=== PATIENT | female | born 1975 | race American Indian/Alaskan Native ===

== ENCOUNTER 2017-03-28 17:03 | Observation (INO) | payer OTHER ==
[2017-03-28 17:09] VITALS: BMI 47.5
--- NOTE | 2017-03-28 17:17 | ED PDOC ---
Arrival/HPI - General Chief Complaint: Chest Pain Time Seen by Provider: 03/28/17 17:04 Historian: Patient - History of Present Illness Narrative History of Present Illness (Text): 03/28/17 17:17 A 41 year old female, who denies any past medical history, presents to the emergency department complaining of midsternal chest pain since last night. Patient reports her pain began as a pressure sensation that developed into a sharp pain this morning associated with sob. She reports radiating pain to her back and a mild headache. She took Aspirin and Motrin, with mild relief. Patient denies any exacerbating factors but reports she has been under stress lately. Patient denies any trauma, injury, fever, chills, nausea, vomiting, abdominal pain, cough, sore throat, runny nose, lower extremity pain/swelling, dizziness, visual changes or any other complaints. Last menstrual period was 9 days ago on 03/19/17. Patient denies any recent travel or control use. PMD: [facility] Time/Duration: Other (last night) Symptom Course: Worsening Quality: Other Context: Home Past Medical History - Provider Review Nursing Documentation Reviewed: Yes - Past History Past History: No Previous - Infectious Disease Hx of Infectious Diseases: None - Psychiatric Hx Substance Use: No - Surgical History Hx Section: Yes Hx Cholecystectomy: (x1) - Anesthesia Hx Anesthesia: Yes Hx Anesthesia Reactions: No Family/Social History - Physician Review Nursing Documentation Reviewed: Yes Family/Social History: Hypertension Smoking Status: Never Smoked Hx Alcohol Use: No Hx Substance Use: No Allergies/Home Meds Allergies/Adverse Reactions: Allergies No Known Allergies Allergy (Verified 03/28/17 17:09) Home Medications: Home Meds Medication Instructions Recorded Confirmed No Known Home Med 03/28/17 03/28/17 Review of Systems - Physician Review All systems were reviewed & negative as marked: Yes - Review of Systems Constitutional: absent: Fevers, Night Sweats Eyes: absent: Vision Changes ENT: absent: Sore Throat, Rhinorrhea Respiratory: absent: SOB, Cough Cardiovascular: Chest Pain Gastrointestinal: absent: Abdominal Pain, Nausea, Vomiting Musculoskeletal: Back Pain. absent: Other (lower extremity pain/swelling) Neurological: Headache. absent: Dizziness Physical Exam Vital Signs Reviewed: Yes Vital Signs Temp Pulse Resp BP Pulse Ox 03/28/17 17:26 98.2 F 65 18 149/83 100 Temperature: Afebrile Blood Pressure: Normal Pulse: Regular Respiratory Rate: Normal Appearance: Positive for: Well-Appearing, Non-Toxic, Comfortable Pain Distress: None Mental Status: Positive for: Alert and Oriented X 3 - Systems Exam Head: Present: Atraumatic, Normocephalic Pupils: Present: PERRL Conjunctiva: Present: Normal Mouth: Present: Moist Mucous Membranes Pharnyx: Present: Normal. No: ERYTHEMA, EXUDATE Neck: Present: Normal Range of Motion Respiratory/Chest: Present: Clear to Auscultation, Good Air Exchange. No: Respiratory Distress, Accessory Muscle Use, Tender to Palpation Cardiovascular: Present: Regular Rate and Rhythm, Normal S1, S2. No: Murmurs Abdomen: Present: Normal Bowel Sounds. No: Tenderness, Distention, Peritoneal Signs Back: Present: Normal Inspection Upper Extremity: Present: Normal Inspection. No: Cyanosis, Edema Lower Extremity: Present: Normal Inspection. No: Edema Neurological: Present: GCS=15, CN II-XII Intact, Speech Normal Skin: Present: Warm, Dry, Normal Color. No: Rashes Psychiatric: Present: Alert, Oriented x 3, Normal Insight, Normal Concentration Medical Decision Making ED Course and Treatment: 03/28/17 17:17 Impression: A 41 year old female with midsternal chest pain radiating to back with sob. Patient notes mild headache and stress. Differential: anxiety vs. PE vs. disseection vs. GERD vs. ACS Plan: -- Chest CT -- Labs -- Urinalysis -- Pepcid and IV fluids -- Reassess and disposition Progress Notes: EKG shows NSR at [address]-segment elevations, normal intervals, normal axis. Interpreted by me. Report Date : 03/28/2017 20:58:00 Dictated By: Tomas Orourke MD, MD EXAM: CT Angiography Chest With Intravenous Contrast IMPRESSION: 1. A few nonocclusive filling defects are identified within the segmental branches to the right upper lobe, suspicious for pulmonary embolism. This is visualized on series 3 image 75. Evaluation of the peripheral pulmonary arteries is limited by suboptimal enhancement. There is no acute central pulmonary embolism. 2. There is no aneurysm or dissection of the aorta. 3. A few small lung nodules are visualized. If this patient is at low risk for a primary malignancy, then no follow-up is required. If this patient is at high risk for a primary maligancy, then a follow-up noncontrast chest CT is recommended at 12 months. If unchanged at that time, then no follow-up is required. Fleischner Society Recommendations. Incidental Pulmonary Nodule Follow -up. Radiology, 2005 Nov;237(2):395-400. EXAM: CT Angiography Abdomen and Pelvis With Intravenous Contrast IMPRESSION: 1. There is no aneurysm or dissection of the aorta. 2. There is a 3-4 mm nonobstructing right renal calculus. There is no hydronephrosis bilaterally. 3. There is mild nodular thickening of the left adrenal gland, indeterminate in etiology. 4. The bladder is mildly distended. 5. Diverticulosis. 6. The appendix is mildly distended measuring 7-8 mm. There is no acute periappendiceal stranding. Clinical correlation is recommended. 03/28/17 21:39 Patient with noted history; CT shows findings suspicious for PE - will place on tele and start lovenox. Case discussed with Dr. Spicer. - Lab Interpretations Lab Results: 03/28/17 17:20 03/28/17 17:20 Lab Results 03/28/17 17:35: Urine Color Yellow, Urine Appearance Clear, Urine pH 6.0, Ur Specific [place] 1.015, Urine Protein Negative, Urine Glucose (UA) Negative, Urine Ketones Negative, Urine Blood Negative, Urine Nitrate Negative, Urine Bilirubin Negative, Urine Urobilinogen 0.2, Ur Leukocyte Esterase Negative 03/28/17 17:20: PT 10.7, INR 0.99, APTT 28.9 03/28/17 17:20: Sodium 140, Potassium 3.7, Chloride 104, Carbon Dioxide 26, Anion Gap 14, BUN 9, Creatinine 0.8, Est GFR ( Amer) > 60, Est GFR (Non- Af Amer) > 60, Random Glucose 112 H, Calcium 9.2, Magnesium 1.7, Total Bilirubin 0.3, AST 21, ALT 32, Alkaline Phosphatase 48, Lactate Dehydrogenase 370, Total Creatine Kinase 170, Troponin I < 0.01, NT-Pro-B Natriuret Pep 190, Total Protein 7.0, Albumin 4.0, Globulin 3.1, Albumin/Globulin Ratio 1.3, Lipase 30 03/28/17 17:20: WBC 4.7, RBC 4.04, Hgb 11.9 L, Hct 35.7 L, MCV 88.4, MCH 29.5, MCHC 33.3, RDW 13.2, Plt Count 166, MPV 12.3 H, Gran % 39.3 L, Lymph % (Auto) 50.0 H, [place] % (Auto) 7.9 H, Eos % (Auto) 2.4, Baso % (Auto) 0.4, Gran # 1.83, Lymph # 2.3, [place] # 0.4, Eos # 0.1, Baso # 0.02 I have reviewed the lab results: Yes - RAD Interpretation Radiology Orders: 03/28/17 17:22 ANGIOGRAPHY DISECTION PROTOCOL [CT] Stat - Medication Orders Current Medication Orders: Discontinued Medications Alprazolam (Xanax) 0.125 mg PO STAT STA PRN Reason: Protocol Stop: 03/28/17 18:53 Last Admin: 03/28/17 19:21 Dose: 0.125 mg Enoxaparin Sodium (Lovenox) 120 mg SC ONCE STA PRN Reason: Protocol Stop: 03/28/17 21:14 Famotidine (Pepcid) 20 mg IVP STAT STA Stop: 03/28/17 17:25 Last Admin: 03/28/17 17:56 Dose: 20 mg Sodium Chloride (Sodium Chloride 0.9%) 1,000 mls @ 999 mls/hr IV .Q1H1M STA Stop: 03/28/17 18:24 Last Admin: 03/28/17 17:56 Dose: 999 mls/hr Iohexol (Omnipaque 350 150 Ml) Confirm Administered Dose 150 ml .ROUTE .K-MED ONE Stop: 03/28/17 18:23 - Scribe Statement The provider has reviewed the documentation as recorded by the Corine Monterroso Provider Scribe Attestation: All medical record entries made by the Scribyanni were at my direction and personally dictated by me. I have reviewed the chart and agree that the record accurately reflects my personal performance of the history, physical exam, medical decision making, and the department course for this patient. I have also personally directed, reviewed, and agree with the discharge instructions and disposition. Disposition/Present on Arrival - Present on Arrival Any Indicators Present on Arrival: No History of DVT/PE: No History of Uncontrolled Diabetes: No Urinary Catheter: No History of Decub. Ulcer: No History Surgical Site Infection Following: None - Disposition Have Diagnosis and Disposition been Completed?: Yes Diagnosis: Pulmonary embolism Disposition: HOSPITALIZED Disposition Time: 21:15 Patient Plan: Observation, Telemetry Condition: FAIR Referrals: Ivelisse Bush, [Primary Care Provider] - Follow up with primary Forms: [employer] (Icelandic)
[2017-03-28] MEDS ORDERED: Sodium Chloride 0.9% 1,000 ML IV STA (17:24)
[2017-03-28 17:42] LABS: BASO # 0.02 K/mm3 (0.0-2.0); BASO % 0.4 % (0.0-3.0); EOS # 0.1 (0.0-0.7); EOS % 2.4 % (1.5-5.0); GRAN # 1.83 (1.4-6.5); GRAN % 39.3 % (50.0-68.0); HEMATOCRIT 35.7 % (36.0-48.0); LYMPH # 2.3 (1.2-3.4); MEAN CELL VOLUME 88.4 fl (80.0-105.0); MEAN CORPUSCULAR HEMOGLOBIN 29.5 pg (25.0-35.0); MEAN CORPUSCULAR HGB CONC 33.3 g/dl (31.0-37.0); MEAN PLATELET VOLUME 12.3 fl (7.0-11.0); MONO # 0.4 (0.1-0.6); MONO % 7.9 % (1.0-6.0); RED CELL DISTRIBUTION WIDTH 13.2 % (11.5-14.5); WHITE BLOOD COUNT 4.7 10^3/ul (4.5-11.0)
[2017-03-28 17:43] LABS: URINE BILIRUBIN NEGATIVE (NEGATIVE); URINE BLOOD NEGATIVE (NEGATIVE); URINE GLUCOSE (UA) NEGATIVE (NEGATIVE); URINE KETONE NEGATIVE (NEGATIVE); URINE LEUKOCYTE ESTERASE NEGATIVE Leu/uL (NEGATIVE); URINE PROTEIN NEGATIVE mg/dL (<30 mg/dL); URINE UROBILINOGEN 0.2 E.U./dL (<1 E.U./dL)
[2017-03-28 17:45] LABS: URINE APPEARANCE CLEAR (CLEAR); URINE COLOR YELLOW (YELLOW)
[2017-03-28 17:53] LABS: ALB/GLOB RATIO 1.3 (1.1-1.8); ALKALINE PHOSPHATASE 48 U/L (38-126); ALT/SGPT 32 U/L (7-56); AST/SGOT 21 U/L (14-36); BILIRUBIN,TOTAL 0.3 mg/dL (0.2-1.3); BLOOD UREA NITROGEN 9 mg/dL (7-21); CALCIUM 9.2 mg/dL (8.4-10.5); CARBON DIOXIDE 26 mmol/L (21-33); GFR AFRICAN-AMERICAN > 60; GLUCOSE,RANDOM 112 mg/dL (70-110); LIPASE 30 U/L (23-300); MAGNESIUM 1.7 mg/dL (1.7-2.2); POTASSIUM 3.7 mmol/L (3.6-5.0); SODIUM 140 mmol/L (132-148)
[2017-03-28 17:55] LABS: INR 0.99 (0.93-1.08); PARTIAL THROMBOPLASTIN TIME 28.9 Seconds (23.7-30.8)
[2017-03-28 18:02] LABS: CHLORIDE 104 mmol/L (98-107)
[2017-03-28 18:09] LABS: TROPONIN I < 0.01 ng/mL
--- NOTE | 2017-03-28 20:59 | CT ---
EXAM: CT Angiography Chest With Intravenous Contrast CLINICAL HISTORY: The patient age is 41 years old and is female; Pain; Other: Back; Chest pain; Prior surgery; Surgery type: / cholecystectomy; Additional info: Cp radiating to the back - R/O pe/dissection. R/O pe and disection Facility exam id and description: Ct angiodisec angiography disection protocol TECHNIQUE: Axial computed tomographic angiography images of the chest with intravenous contrast using pulmonary embolism protocol. All CT scans at this facility use one or more dose reduction techniques, viz.: automated exposure control; ma/kV adjustment per patient size (including targeted exams where dose is matched to indication; i.e. head); or iterative reconstruction technique. MIP reconstructed images were created and reviewed. Coronal and sagittal reformatted images were created and reviewed. CONTRAST: 147 mL of omni 350 administered intravenously. COMPARISON: No relevant prior studies available. FINDINGS: Pulmonary arteries: A few nonocclusive filling defects are identified within the segmental branches to the right upper lobe, suspicious for pulmonary embolism. This is visualized on series 3 image 75. Evaluation of the peripheral pulmonary arteries is limited by suboptimal enhancement. There is no acute central pulmonary embolism. Aorta: There is no aneurysm or dissection of the aorta. Lungs: Within the right upper lobe of the lung on series 5 image 27, there is a 3 mm nodule. A tiny subpleural nodule is visualized within the right middle lobe. No confluent infiltrate. Pleural space: No significant effusion. No pneumothorax. Heart: No cardiomegaly. No significant pericardial effusion. No evidence of RV dysfunction. Mediastinum: There is a probable small hiatal hernia. Bones/joints: Hypertrophic degenerative changes are noted within the spine. Lymph nodes: Small mediastinal lymph nodes are identified, without significant mediastinal lymphadenopathy. IMPRESSION: 1. A few nonocclusive filling defects are identified within the segmental branches to the right upper lobe, suspicious for pulmonary embolism. This is visualized on series 3 image 75. Evaluation of the peripheral pulmonary arteries is limited by suboptimal enhancement. There is no acute central pulmonary embolism. 2. There is no aneurysm or dissection of the aorta. 3. A few small lung nodules are visualized. If this patient is at low risk for a primary malignancy, then no follow-up is required. If this patient is at high risk for a primary maligancy, then a follow-up noncontrast chest CT is recommended at 12 months. If unchanged at that time, then no follow-up is required. Fleischner Society Recommendations. Incidental Pulmonary Nodule Follow-up. Radiology, 2005 Nov;237(2):395-400. 4. Additional CT findings described above. EXAM: CT Angiography Abdomen and Pelvis With Intravenous Contrast EXAM DATE/TIME: 03/28/2017 5:22 PM CLINICAL HISTORY: The patient age is 41 years old and is female; Pain; Other: Back; Chest pain; Prior surgery; Surgery type: / cholecystectomy; Additional info: Cp radiating to the back - R/O pe/dissection. R/O pe and disection Facility exam id and description: Ct angiodisec angiography disection protocol TECHNIQUE: Axial computed tomographic angiography images of the abdomen and pelvis with intravenous contrast. All CT scans at this facility use one or more dose reduction techniques, viz.: automated exposure control; ma/kV adjustment per patient size (including targeted exams where dose is matched to indication; i.e. head); or iterative reconstruction technique. MIP reconstructed images were created and reviewed. Coronal and sagittal reformatted images were created and reviewed. CONTRAST: 147 mL of omni 350 administered intravenously. COMPARISON: No relevant prior studies available. FINDINGS: Lower thorax: There is a probable small hiatal hernia. VASCULATURE: Aorta: There is no aneurysm or dissection of the aorta. Celiac trunk and mesenteric arteries: The inferior mesenteric artery is patent. No occlusion or significant stenosis. Renal arteries: No acute findings. No occlusion or significant stenosis. Iliac arteries: No acute findings. No occlusion or significant stenosis. ABDOMEN: Liver: No mass. Gallbladder and bile ducts: No calcified stones. No ductal dilation. Pancreas: No ductal dilation. No mass. Spleen: No splenomegaly. Adrenals: There is mild nodular thickening of the left adrenal gland, indeterminate in etiology. Kidneys and ureters: There is a 3-4 mm nonobstructing right renal calculus. There is no hydronephrosis bilaterally. Stomach and bowel: Colonic diverticula are identified, without acute inflammatory stranding of the adjacent mesentery. No obstruction. Evaluation of bowel is limited by the absence of oral contrast. Appendix: The appendix is mildly distended measuring 7-8 mm. There is no acute periappendiceal stranding. PELVIS: Bladder: The bladder is mildly distended. Reproductive: Unremarkable as visualized. ABDOMEN and PELVIS: Intraperitoneal space: No significant fluid collection. No free air. Bones/joints: Mild degenerative changes are visualized within the lumbar spine. No acute fracture. No dislocation. Soft tissues: There is eventration of the ventral abdominal wall. Lymph nodes: No significant retroperitoneal or intrapelvic lymphadenopathy. IMPRESSION: 1. There is no aneurysm or dissection of the aorta. 2. There is a 3-4 mm nonobstructing right renal calculus. There is no hydronephrosis bilaterally. 3. There is mild nodular thickening of the left adrenal gland, indeterminate in etiology. 4. The bladder is mildly distended. 5. Diverticulosis. 6. The appendix is mildly distended measuring 7-8 mm. There is no acute periappendiceal stranding. Clinical correlation is recommended. 7. Additional CT findings described above.
[2017-03-28] MEDS ORDERED: Enoxaparin 120 mg Syringe SC STA (21:13)
--- NOTE | 2017-03-29 01:34 | CP.PCM.HP ---
<TARYN CARVER - Last Filed: 03/29/17 01:17> History of Present Illness - History of Present Illness History of Present Illness: Taryn Carver DO PGY1 - Internal Medicine H&P CC: Chest pain HPI: 41yo F with no significant PMH presented to ED complaining of CP. Yesterday , she felt some chest pressure, associated with anxiety, which resolved spontaneously. She has had that sensation of chest pressure in the past, always associated with anxiety and always relieved spontaneously. Today, she was sitting at home, and got up to walk to her kitchen, when she started feeling a sharp midchest retrosternal pain that radiated to her back. She has never had that pain before. Pain was 8/10 in severity, associated with mild headache. She took an 81mg aspirin, and has some improvement in her pain about an hour later, to a 5/10 in severity. She came to the ER where she initially received Xanax and pepcid. Currently, her pain is resolved, 0/10 in severity. She denies any SOB, N/V, diaphoresis associated with her CP today. It was not worsened by anything in particular, including exertion. Patient now denies any CP, SOB, palpitation, abdominal pain, F/C, N/V/D/C, VINSON, focal weakness or numbness, dizziness, LE swelling or pain. Of note, patient denies recent travel, recent illness, recent surgery, prolonged immobilization/bed rest. PMH: None PSH: section 13 yrs ago Meds: OTC motrin as needed, has been using 1-2 daily for past couple weeks FHx: DM, HTN, dyslipidemia - in mother and father, TIA - in mother Soc: Tob denies, EtOH denies, Illicits denies All: NKDA ROS: Constitutional: pt denies fever, chills, generalized weakness ENT: pt denies dysphagia, otalgia, hearing deficit, rhinorrhea Eyes: pt denies sudden loss of vision, diplopia, blurred vision MSK: pt denies muscle stiffness, joint pain, extremity cramping Cardio: +CP (resolved) pt denies sob, heart murmur Pulm: pt denies cough, hemoptysis, wheeze GI: pt denies loss of appetite, abdominal pain, constipation, melena, n/v/d : pt denies burning on urination, urinary frequency, hematuria, urinary urgency Neuro: pt denies paresis, paresthesia, dizziness, vinson, numbness, tingling Derm: pt denies skin changes, lesions, nail changes Endo: pt denies intolerance to heat/cold, diaphoresis, night sweats, polydipsia Psych: +Anxiety pt denies depression, mood changes Present on Admission - Present on Admission Any Indicators Present on Admission: No Past Patient History - Infectious Disease Hx of Infectious Diseases: None - Past Social History Smoking Status: Never Smoked - PSYCHIATRIC Hx Substance Use: No - SURGICAL HISTORY Hx Section: Yes Hx Cholecystectomy: (x1) - ANESTHESIA Hx Anesthesia: Yes Hx Anesthesia Reactions: No Meds Allergies/Adverse Reactions: Allergies Allergy/AdvReac Type Severity Reaction Status Date / Time No Known Allergies Allergy Verified 03/28/17 17:09 Physical Exam - Constitutional Appears: Non-toxic, No Acute Distress - Head Exam Head Exam: ATRAUMATIC, NORMOCEPHALIC - Eye Exam Eye Exam: EOMI, Normal appearance, PERRL - ENT Exam ENT Exam: Mucous Membranes Moist - Neck Exam Neck exam: Negative for: Lymphadenopathy, Meningismus - Respiratory Exam Respiratory Exam: Clear to Auscultation Bilateral, NORMAL BREATHING PATTERN. absent: Chest Wall Tenderness, Rales, Rhonchi, Wheezes - Cardiovascular Exam Cardiovascular Exam: RRR, +S1, +S2. absent: Tachycardia - GI/Abdominal Exam GI & Abdominal Exam: Normal Bowel Sounds, Soft. absent: Tenderness - Extremities Exam Extremities exam: Positive for: normal inspection, pedal edema (trace, bilateral ). Negative for: calf tenderness - Back Exam Back exam: absent: CVA tenderness (L), CVA tenderness (R) - Neurological Exam Neurological exam: Alert, CN II-XII Intact, Oriented x3 - Psychiatric Exam Psychiatric exam: Normal Affect, Normal Mood - Skin Skin Exam: Dry, Intact, Normal Color Results - Vital Signs Recent Vital Signs: Last Vital Signs Temp 98.2 F 03/28/17 17:26 Pulse 73 03/28/17 21:19 Resp 16 03/28/17 21:19 BP 151/91 H 03/28/17 21:19 Pulse Ox 100 03/28/17 21:19 - Labs Result Diagrams: 03/28/17 17:20 03/28/17 17:20 Assessment & Plan - Assessment and Plan (Free Text) Assessment: 41 yo F with no significant PMH presents with CP radiating to her back, associated with VINSON and anxiety. CTA with dissection protocol done in ED significant for filling defects - possible PE Plan: 1. Chest pain, resolved - Likely 2/2 anxiety vs PE, r/o dissection, r/o ACS - Pain improved to 0/10 in severity after patient received Xanax and Pepcid in ER - CTA with dissection protocol done in ED showed no dissection, but some subsegmental filling defects in RUL concerning for PE - Radiographic findings inconsistent with patient's history and HPI, and she has no known risk factors for PE (no history of DVT/PE, nonsmoker, no FHx of hypercoagulability, no HRT/OCPs, prolonged immobility), likely false positive - Ordered LE duplex, D-dimer and ABG to r/o DVT/PE - Patient recieved Lovenox in ER, hypercoagulable workup will be altered by that , should have outpatient workup in 2 weeks if she does not require prolonged anticoagulation - Continue Lovenox 110mg SQ BID unless PE is r/o - Trop negative x1, continue to trend - BNP 190 - Hem/Onc consult to r/o hypercoagulability - Continue to monitor SaO2 GI/DVT PPx: Lovenox covers for DVT; protonix for GI Patient seen, discussed, and reviewed with attending <Odilon Spicer - Last Filed: 03/29/17 07:01> Results - Vital Signs Recent Vital Signs: Last Vital Signs Temp 98.9 F 03/29/17 06:00 Pulse 57 L 03/29/17 06:00 Resp 18 03/29/17 06:00 BP 136/85 03/29/17 06:00 Pulse Ox 100 03/29/17 06:00 - Labs Result Diagrams: 03/29/17 06:04 03/28/17 17:20 Labs: Laboratory Results - last 24 hr 03/29/17 03/29/17 06:04 06:04 WBC 4.1 L RBC 4.00 Hgb 11.6 L Hct 35.5 L MCV 88.8 MCH 29.0 MCHC 32.7 RDW 13.5 Plt Count 165 MPV 12.5 H Gran % 40.8 L Lymph % (Auto) 48.5 H [place] % (Auto) 8.0 H Eos % (Auto) 2.2 Baso % (Auto) 0.5 Gran # 1.67 Lymph # 2.0 [place] # 0.3 Eos # 0.1 Baso # 0.02 D-Dimer, Quantitative 0.31 Attending/Attestation - Attestation I have personally seen and examined this patient.: Yes I have fully participated in the care of the patient.: Yes I have reviewed all pertinent clinical information: Yes Notes (Text): 03/29/17 06:58 I agree with the above mentioned note and exam by the resident with the addition of the followin41 y/o female without a significant PMHx presented to the ED with a complaint of chest pain radiating towards the back. ED Physician was concerned for Aortic dissection so a CT Angio was performed which ruled that out however did report of a possible PE. Appears unlikely given lack of symptoms however patient has been treated for an acute PE. Consider re-evaluation on CT Angio vs V/Q scan to confirm.
[2017-03-29] MEDS: Pantoprazole 40 mg EC Tab PO SCH (05:35)
[2017-03-29 06:27] LABS: BASO # 0.02 K/mm3 (0.0-2.0); BASO % 0.5 % (0.0-3.0); EOS # 0.1 (0.0-0.7); EOS % 2.2 % (1.5-5.0); GRAN # 1.67 (1.4-6.5); GRAN % 40.8 % (50.0-68.0); HEMATOCRIT 35.5 % (36.0-48.0); LYMPH % 48.5 % (22.0-35.0); MEAN CELL VOLUME 88.8 fl (80.0-105.0); MEAN CORPUSCULAR HGB CONC 32.7 g/dl (31.0-37.0); MEAN PLATELET VOLUME 12.5 fl (7.0-11.0); MONO # 0.3 (0.1-0.6); RED CELL DISTRIBUTION WIDTH 13.5 % (11.5-14.5); WHITE BLOOD COUNT 4.1 10^3/ul (4.5-11.0)
[2017-03-29 07:07] LABS: ARTERIAL BLOOD GAS HCO3 17.6 mmol/L (21-28); ARTERIAL BLOOD GAS O2 CAPACITY 12.8 mL/dl (16-24); ARTERIAL BLOOD GAS O2 CONTENT 12.7 ML/dl (15-23); ARTERIAL BLOOD GAS PH 7.39 (7.35-7.45); ARTERIAL BLOOD HGB O2 SAT 96.7 % (95.0-98.0); CARBOXYHEMOGLOBIN 1.7 % (0.5-1.5); HHB 0.9 % (0-5); METHEMOGLOBIN 0.7 % (0.0-3.0)
[2017-03-29 07:17] LABS: ALB/GLOB RATIO 1.3 (1.1-1.8); ALKALINE PHOSPHATASE 49 U/L (38-126); ALT/SGPT 30 U/L (7-56); AST/SGOT 26 U/L (14-36); BILIRUBIN,TOTAL 0.5 mg/dL (0.2-1.3); BLOOD UREA NITROGEN 6 mg/dL (7-21); CALCIUM 9.2 mg/dL (8.4-10.5); CARBON DIOXIDE 28 mmol/L (21-33); CHLORIDE 104 mmol/L (98-107); GFR AFRICAN-AMERICAN > 60; GLUCOSE,RANDOM 89 mg/dL (70-110); MAGNESIUM 1.8 mg/dL (1.7-2.2); PHOSPHOROUS 4.2 mg/dL (2.5-4.5); POTASSIUM 3.8 mmol/L (3.6-5.0); SODIUM 141 mmol/L (132-148); TOTAL PROTEIN 7.1 g/dL (5.8-8.3)
--- NOTE | 2017-03-29 09:55 | CP.PCM.CON ---
History of Present Illness - History of Present Illness History of Present Illness: 41F w/o any significant medical history who presented with sudden chest tightness, pain associated with anxiety that lasted for 1 minute. She has this pain in episodes when she in under stress and anxiety. The pain resolved once she sat down and upon arriving to the ER her pain resolved. In the ER she had blood work, EKG and imaging done. Currently she is asymptomatic . Review of Systems - Constitutional Constitutional: absent: As Per HPI, Anorexia, Chills, Daytime Sleepiness, Excessive Sweating, Fatigue, Fever, Frequent Falls, Headache, Increased Appetite , Lethargy, Malaise, Night Sweats, Snoring, Sleep Apnea, Weight Gain, Weight Loss, Weakness, Other - EENT Eyes: absent: As Per HPI, Blind Spots, Blurred Vision, Change in Vision, Decreased Night Vision, Diplopia, Discharge, Dry Eye, Exophthalmos, Floaters, Irritation, Itchy Eyes, Loss of Peripheral Vision, Pain, Photophobia, Requires Corrective Lenses, Sees Flashes, Spots in Vision, Tunnel Vision, Other Visual Disturbances, Loss of Vision, Other Ears: absent: As Per HPI, Decreased Hearing, Ear Discharge, Ear Pain, Tinnitus, Abnormal Hearing, Disequilibrium, Dizziness, Other Nose/Mouth/Throat: absent: As Per HPI, Epistaxis, Nasal Congestion, Nasal Discharge, Nasal Obstruction, Nasal Trauma, Nose Pain, Post Nasal Drip, Sinus Pain, Sinus Pressure, Bleeding Gums, Change in Voice, Dental Pain, Dry Mouth, Dysphagia, Halitosis, Hoarsness, Lip Swelling, Mouth Lesions, Mouth Pain, Odynophagia, Sore Throat, Throat Swelling, Tongue Swelling, Facial Pain, Neck Pain, Neck Mass, Other - Breasts Breasts: absent: As Per HPI, Change in Shape, Mass, Pain, Nipple Discharge, Nipple Inversion, Skin Changes, Swelling, Other - Cardiovascular Cardiovascular: absent: As Per HPI, Acrocyanosis, Chest Pain, Chest Pain at Rest , Chest Pain with Activity, Claudication, Diaphoresis, Dyspnea, Dyspnea on Exertion, Edema, Irregular Heart Rhythm, Pain Radiating to Arm/Neck/Jaw, Leg Edema, Leg Ulcers, Lightheadedness, Orthopnea, Palpitations, Paroxysmal Nocturnal Dyspnea, Pedal Edema, Radiating Pain, Rapid Heart Rate, Slow Heart Rate, Syncope, Other - Respiratory Respiratory: absent: As Per HPI, Cough, Dyspnea, Hemoptysis, Dyspnea on Exertion , Wheezing, Snoring, Stridor, Pain on Inspiration, Chest Congestion, Excessive Mucous Production, Change in Mucous Color, Pain with Coughing, Other - Gastrointestinal Gastrointestinal: absent: As Per HPI, Abdominal Pain, Belching, Bloating, Change in Bowel Habits, Change in Stool Character, Coffee Ground Emesis, Constipation, Cramping, Diarrhea, Dyspepsia, Dysphagia, Early Satiety, Excessive Flatus, Fecal Incontinence, Heartburn, Hematemesis, Hematochezia, Loose Stools, Melena, Nausea, Odynophagia, Temesmus, Vomiting, Other - Genitourinary Genitourinary: absent: As Per HPI, Change in Urinary Stream, Difficulty Urinating, Dysuria, Flank Pain, Hematuria, Pyuria, Nocturia, Urinary Incontinence, Urinary Frequency, Urinary Hesitance, Urinary Urgency, Voiding Freq/Small Amts, Freq UTI, Hx Renal/Bladder Calculi, Hx /Renal Surgery, Bladder Distension, Other - Reproductive: Female Reproductive:Female: absent: As Per HPI, Amenorrhea, Amenorrhea/ Control, Currently Menstual, Cycle <21 Days, Cycle >35 Days, Cycle Variable, Menses 1-7 Days, Menses >/= 8 Days, Menses Variable, Cycle > 4 Weeks Between, No Menses for 6 Months, Heavy Menses, Light Menses, Normal Menses, Spotting Between Cycles , S/P Hysterectomy, Menopausal, Post Menopausal, Premenarche, Abnormal Vaginal Bleeding, Dysmenorrhea, Dyspareunia, Genital Lesions, Genital Pruritis, Pelvic Pain, Prolapse Symptoms, Sexual Dysfunction, Vaginal Discharge, Vaginal Dryness , Vaginal Odor, Vaginal Pruritis, Other - Musculoskeletal Musculoskeletal: absent: As Per HPI, Abnormal Gait, Arthralgias, Atrophy, Back Pain, Deformity, Joint Swelling, Limited Range of Motion, Loss of Height, Muscle Cramps, Muscle Weakness, Myalgias, Neck Pain, Numbness, Radiating Pain into Limb, Stiffness, Tingling, Other Past Patient History - Infectious Disease Hx of Infectious Diseases: None - Past Social History Smoking Status: Never Smoked - MUSCULOSKELETAL/RHEUMATOLOGICAL Hx Falls: No - PSYCHIATRIC Hx Substance Use: No - SURGICAL HISTORY Hx Surgeries: Yes - ANESTHESIA Hx Anesthesia: Yes Hx Anesthesia Reactions: No Meds Allergies/Adverse Reactions: Allergies Allergy/AdvReac Type Severity Reaction Status Date / Time No Known Allergies Allergy Verified 03/28/17 17:09 - Medications Medications: Current Medications Enoxaparin Sodium (Lovenox) 110 mg SC Q12 [facility] PRN Reason: Protocol Pantoprazole Sodium (Protonix Ec Tab) 40 mg PO 0600 [facility] Last Admin: 03/29/17 05:35 Dose: 40 mg Physical Exam - Eye Exam Eye Exam: EOMI - ENT Exam ENT Exam: Mucous Membranes Moist, Normal Exam - Neck Exam Neck exam: Positive for: Normal Inspection - Respiratory Exam Respiratory Exam: Clear to Auscultation Bilateral, NORMAL BREATHING PATTERN - Cardiovascular Exam Cardiovascular Exam: REGULAR RHYTHM - GI/Abdominal Exam GI & Abdominal Exam: Normal Bowel Sounds, Soft - Rectal Exam Rectal Exam: Deferred - Back Exam Back exam: NORMAL INSPECTION - Neurological Exam Neurological exam: Alert, Oriented x3 Results - Vital Signs Recent Vital Signs: Last Vital Signs Temp 98.9 F 03/29/17 06:00 Pulse 57 L 03/29/17 06:00 Resp 18 03/29/17 06:00 BP 136/85 03/29/17 06:00 Pulse Ox 100 03/29/17 06:00 - Labs Result Diagrams: 03/29/17 06:04 03/29/17 06:04 Labs: Laboratory Results - last 24 hr 03/29/17 03/29/17 03/29/17 06:04 06:04 06:04 WBC 4.1 L RBC 4.00 Hgb 11.6 L Hct 35.5 L MCV 88.8 MCH 29.0 MCHC 32.7 RDW 13.5 Plt Count 165 MPV 12.5 H Gran % 40.8 L Lymph % (Auto) 48.5 H [place] % (Auto) 8.0 H Eos % (Auto) 2.2 Baso % (Auto) 0.5 Gran # 1.67 Lymph # 2.0 [place] # 0.3 Eos # 0.1 Baso # 0.02 D-Dimer, Quantitative 0.31 pCO2 pO2 HCO3 ABG pH ABG Total CO2 ABG O2 Saturation ABG O2 Content ABG Base Excess ABG Hemoglobin ABG Carboxyhemoglobin POC ABG HHb (Measured) ABG Methemoglobin ABG O2 Capacity Hgb O2 Saturation FiO2 Sodium 141 Potassium 3.8 Chloride 104 Carbon Dioxide 28 Anion Gap 13 BUN 6 L Creatinine 0.8 Est GFR ( Amer) > 60 Est GFR (Non-Af Amer) > 60 Random Glucose 89 Calcium 9.2 Phosphorus 4.2 Magnesium 1.8 Total Bilirubin 0.5 AST 26 ALT 30 Alkaline Phosphatase 49 Total Protein 7.1 Albumin 4.0 Globulin 3.1 Albumin/Globulin Ratio 1.3 TSH 3rd Generation 03/29/17 03/29/17 06:04 07:03 WBC RBC Hgb Hct MCV MCH MCHC RDW Plt Count MPV Gran % Lymph % (Auto) [place] % (Auto) Eos % (Auto) Baso % (Auto) Gran # Lymph # [place] # Eos # Baso # D-Dimer, Quantitative pCO2 29 L pO2 92.0 HCO3 17.6 L ABG pH 7.39 ABG Total CO2 18.5 L ABG O2 Saturation 99.1 H ABG O2 Content 12.7 L ABG Base Excess -6.5 L ABG Hemoglobin 9.2 L ABG Carboxyhemoglobin 1.7 H POC ABG HHb (Measured) 0.9 ABG Methemoglobin 0.7 ABG O2 Capacity 12.8 L Hgb O2 Saturation 96.7 FiO2 21.0 Sodium Potassium Chloride Carbon Dioxide Anion Gap BUN Creatinine Est GFR ( Amer) Est GFR (Non-Af Amer) Random Glucose Calcium Phosphorus Magnesium Total Bilirubin AST ALT Alkaline Phosphatase Total Protein Albumin Globulin Albumin/Globulin Ratio TSH 3rd Generation 1.11 Assessment & Plan - Assessment and Plan (Free Text) Assessment: 41 y/o F w/ Likely Anxiety Panic attacks. EKG reviewed , WNL. Troponin negative. Venous dopplers pending. CT Angio disection protocol reviewed w/ Radiology attending . No images supporting an acute Pulmonary embolism . Protocol was done done for P.E therefore images were not perfect. If concern for P.E is high can re-image in 2 days w/ P.E protocol. D-Dimer was done and negative, therefore pre-test probability low. No NEED for V /Q scan. ECHo can be done to r/o any cardiomyopathy. Anxiety work-up by Psych can be done. Sub segmental Nodules are low risk and does not need follow up due to non- smoking history and no other risk factors. Thank you
[2017-03-29] MEDS ORDERED: Enoxaparin 120 mg Syringe SC SCH (10:00)
--- NOTE | 2017-03-29 10:43 | NM ---
COMPARISON: CT 03/28/2017 TECHNIQUE: 37.2 mCi technetium 99-m DTPA aerosol. 4.1 mCI technetium 99-m MAA administered intravenously. FINDINGS: VENTILATION COMPONENT: Normal. PERFUSION COMPONENT: Normal. IMPRESSION: Lowprobability ventilation perfusion scan for pulmonary embolism.
--- NOTE | 2017-03-29 13:27 | CARD ---
APPROVED REPORT EKG Measurement Heart [id number] <Conclusion> Normal sinus rhythm
--- NOTE | 2017-03-29 18:07 | CARD ---
APPROVED REPORT EXAM: Two-dimensional and M-mode echocardiogram with Doppler and color Doppler. INDICATION LV Function:SystolicDiastolic 2D DIMENSIONS Left Atrium (2D)3.4 (1.6-4.0cm)IVSd1.2 (0.7-1.1cm) LVDd4.3 (3.9-5.9cm)PWd1.1 (0.7-1.1cm) LVDs2.9 (2.5-4.0cm)FS (%) 32.2 % LVEF (%)60.7 (>50%) M-Mode DIMENSIONS Aortic Root2.80 (2.2-3.7cm)Aortic Cusp Exc.1.60 (1.5-2.0cm) Aortic Valve AoV Peak Vwbsihdf727.0cm/Steve Peak GR.6mmHg Mitral Valve E/A ratio0.0 TDI E/Lateral E'0.0E/Medial E'0.0 Tricuspid Valve TR Peak [id number] [id number] Peak Gr.19mmHg [id number] LEFT VENTRICLE The left ventricle is normal size. There is normal left ventricular wall thickness. The left ventricular function is normal.EF-55-60% There is normal LV segmental wall motion. The left ventricular diastolic function is normal. No left ventricle thrombus noted on this study. There is no ventricular septal defect visualized. There is no left ventricular aneurysm. There is no mass noted in the left ventricle. RIGHT VENTRICLE The right ventricle is normal size. There is normal right ventricular wall thickness. The right ventricular systolic function is normal. ATRIA The left atrium size is normal. The right atrium size is normal. The interatrial septum is intact with no evidence for an atrial septal defect. AORTIC VALVE The aortic valve is thickened but opens well. There is trace aortic regurgitation. There is no aortic valvular stenosis. There is no aortic valvular vegetation. MITRAL VALVE The mitral valve is thickened but opens well. Mitral regurgitation is trace to mild. There is no mitral valve stenosis. There is no evidence of mitral valve prolapse. TRICUSPID VALVE The tricuspid valve leaflets are thickened , but open well. There is mild to moderate tricuspid regurgitation.RVSP_29 mmof Hg. There is no tricuspid valve stenosis. There is no tricuspid valve prolapse or vegetation. PULMONIC VALVE The pulmonary valve is normal in structure. There is trace pulmonic valvular regurgitation. There is no pulmonic valvular stenosis. GREAT VESSELS The aortic root is normal in size. The ascending aorta is normal in size. The pulmonary artery is normal. The IVC is normal in size and collapses >50% with inspiration. PERICARDIAL EFFUSION There is no pleural effusion. There is no pericardial effusion. <Conclusion> Normal chamber Size. EF-55-60% There is trace aortic regurgitation. Mitral regurgitation is trace to mild. There is mild to moderate tricuspid regurgitation.RVSP_29 mmof Hg. There is no pericardial effusion. No Vegetation or thrombus noted.
[2017-03-29 18:09] VITALS: RESP 20
--- NOTE | 2017-03-29 18:20 | US ---
HISTORY: Leg pain and swelling. Evaluate for DVT PHYSICIAN(S): Catrachito Russell MD. TECHNIQUE: Duplex sonography and color-flow Doppler with graded compression were used to evaluate the deep venous systems of both lower extremities. FINDINGS: The visualized deep venous systems of both lower extremities are sonographically normal and compressible. Normal wave forms and augmentation are seen. There is no sonographic evidence for deep venous thrombosis in the visualized segments of both lower extremities. IMPRESSION: No sonographic evidence for deep venous thrombosis in the visualized segments of both lower extremities.
[2017-03-30] MEDS: Pantoprazole 40 mg EC Tab PO SCH (05:10)
[2017-03-30 06:12] VITALS: O2SAT 99
[2017-03-30 06:42] LABS: BASO # 0.03 K/mm3 (0.0-2.0); BASO % 0.8 % (0.0-3.0); EOS # 0.1 (0.0-0.7); EOS % 1.8 % (1.5-5.0); GRAN # 1.51 (1.4-6.5); HEMATOCRIT 37.6 % (36.0-48.0); LYMPH % 50.4 % (22.0-35.0); MEAN CELL VOLUME 88.5 fl (80.0-105.0); MEAN CORPUSCULAR HEMOGLOBIN 28.9 pg (25.0-35.0); MEAN CORPUSCULAR HGB CONC 32.7 g/dl (31.0-37.0); MEAN PLATELET VOLUME 12.7 fl (7.0-11.0); MONO # 0.3 (0.1-0.6); RED CELL DISTRIBUTION WIDTH 13.5 % (11.5-14.5); WHITE BLOOD COUNT 3.9 10^3/ul (4.5-11.0)
[2017-03-30 06:48] LABS: ALB/GLOB RATIO 1.3 (1.1-1.8); ALKALINE PHOSPHATASE 51 U/L (38-126); ALT/SGPT 34 U/L (7-56); AST/SGOT 23 U/L (14-36); BILIRUBIN,TOTAL 0.6 mg/dL (0.2-1.3); BLOOD UREA NITROGEN 11 mg/dL (7-21); CALCIUM 9.5 mg/dL (8.4-10.5); CARBON DIOXIDE 26 mmol/L (21-33); CHLORIDE 103 mmol/L (98-107); GFR AFRICAN-AMERICAN > 60; GLUCOSE,RANDOM 91 mg/dL (70-110); POTASSIUM 4.1 mmol/L (3.6-5.0); SODIUM 140 mmol/L (132-148); TOTAL PROTEIN 7.4 g/dL (5.8-8.3)
[2017-03-30 07:17] LABS: TROPONIN I < 0.01 ng/mL
[2017-03-30 12:39] VITALS: BP 142/82; TEMP 98.5
--- NOTE | 2017-03-30 16:11 | CP.PCM.DIS ---
<Sukhi Espinosa - Last Filed: 03/30/17 16:11> Provider - Provider Date of Admission: 03/28/17 21:29 Attending physician: Josias James MD Time Spent in preparation of Discharge (in minutes): 40 Hospital Course - Lab Results Lab Results: Most Recent Lab Values WBC 3.9 10^3/ul (4.5-11.0) L 03/30/17 06:00 RBC 4.25 10^6/uL (3.5-6.1) 03/30/17 06:00 Hgb 12.3 g/dL (12.0-16.0) 03/30/17 06:00 Hct 37.6 % (36.0-48.0) 03/30/17 06:00 MCV 88.5 fl (80.0-105.0) 03/30/17 06:00 MCH 28.9 pg (25.0-35.0) 03/30/17 06:00 MCHC 32.7 g/dl (31.0-37.0) 03/30/17 06:00 RDW 13.5 % (11.5-14.5) 03/30/17 06:00 Plt Count 174 10^3/uL (120.0-450.0) 03/30/17 06:00 MPV 12.7 fl (7.0-11.0) H 03/30/17 06:00 Gran % 39.0 % (50.0-68.0) L 03/30/17 06:00 Lymph % (Auto) 50.4 % (22.0-35.0) H 03/30/17 06:00 [place] % (Auto) 8.0 % (1.0-6.0) H 03/30/17 06:00 Eos % (Auto) 1.8 % (1.5-5.0) 03/30/17 06:00 Baso % (Auto) 0.8 % (0.0-3.0) 03/30/17 06:00 Gran # 1.51 (1.4-6.5) 03/30/17 06:00 Lymph # 2.0 (1.2-3.4) 03/30/17 06:00 [place] # 0.3 (0.1-0.6) 03/30/17 06:00 Eos # 0.1 (0.0-0.7) 03/30/17 06:00 Baso # 0.03 K/mm3 (0.0-2.0) 03/30/17 06:00 PT 10.7 Seconds (9.9-11.8) 03/28/17 17:20 INR 0.99 (0.93-1.08) 03/28/17 17:20 APTT 28.9 Seconds (23.7-30.8) 03/28/17 17:20 D-Dimer, Quantitative 0.31 mg/L FEU (0-0.50) 03/29/17 06:04 pCO2 29 mm/Hg (35-45) L 03/29/17 07:03 pO2 92.0 mm/Hg (80-100) 03/29/17 07:03 HCO3 17.6 mmol/L (21-28) L 03/29/17 07:03 ABG pH 7.39 (7.35-7.45) 03/29/17 07:03 ABG Total CO2 18.5 mmol.L (22-28) L 03/29/17 07:03 ABG O2 Saturation 99.1 % (95-98) H 03/29/17 07:03 ABG O2 Content 12.7 ML/dl (15-23) L 03/29/17 07:03 ABG Base Excess -6.5 mmol/L (-2.0-3.0) L 03/29/17 07:03 ABG Hemoglobin 9.2 g/dL (11.7-17.4) L 03/29/17 07:03 ABG Carboxyhemoglobin 1.7 % (0.5-1.5) H 03/29/17 07:03 POC ABG HHb (Measured) 0.9 % (0-5) 03/29/17 07:03 ABG Methemoglobin 0.7 % (0.0-3.0) 03/29/17 07:03 ABG O2 Capacity 12.8 mL/dl (16-24) L 03/29/17 07:03 Hgb O2 Saturation 96.7 % (95.0-98.0) 03/29/17 07:03 FiO2 21.0 % 03/29/17 07:03 Sodium 140 mmol/L (132-148) 03/30/17 06:00 Potassium 4.1 mmol/L (3.6-5.0) 03/30/17 06:00 Chloride 103 mmol/L (98-107) 03/30/17 06:00 Carbon Dioxide 26 mmol/L (21-33) 03/30/17 06:00 Anion Gap 15 (10-20) 03/30/17 06:00 BUN 11 mg/dL (7-21) 03/30/17 06:00 Creatinine 0.8 mg/dL (0.5-1.4) 03/30/17 06:00 Est GFR ( Amer) > 60 03/30/17 06:00 Est GFR (Non-Af Amer) > 60 03/30/17 06:00 Random Glucose 91 mg/dL (70-110) 03/30/17 06:00 Calcium 9.5 mg/dL (8.4-10.5) 03/30/17 06:00 Phosphorus 4.2 mg/dL (2.5-4.5) 03/29/17 06:04 Magnesium 1.8 mg/dL (1.7-2.2) 03/29/17 06:04 Total Bilirubin 0.6 mg/dL (0.2-1.3) 03/30/17 06:00 AST 23 U/L (14-36) 03/30/17 06:00 ALT 34 U/L (7-56) 03/30/17 06:00 Alkaline Phosphatase 51 U/L (38-126) 03/30/17 06:00 Lactate Dehydrogenase 405 U/L (333-699) 03/30/17 06:00 Total Creatine Kinase 110 U/L (35-230) 03/30/17 06:00 Troponin I < 0.01 ng/mL 03/30/17 06:00 NT-Pro-B Natriuret Pep 190 pg/mL (0-450) 03/28/17 17:20 Total Protein 7.4 g/dL (5.8-8.3) 03/30/17 06:00 Albumin 4.2 g/dL (3.0-4.8) 03/30/17 06:00 Globulin 3.2 gm/dL 03/30/17 06:00 Albumin/Globulin Ratio 1.3 (1.1-1.8) 03/30/17 06:00 Lipase 30 U/L (23-300) 03/28/17 17:20 TSH 3rd Generation 1.11 mIU/mL (0.46-4.68) 03/29/17 06:04 Urine Color Yellow (YELLOW) 03/28/17 17:35 Urine Appearance Clear (CLEAR) 03/28/17 17:35 Urine pH 6.0 (4.7-8.0) 03/28/17 17:35 Ur Specific [place] 1.015 (1.005-1.035) 03/28/17 17:35 Urine Protein Negative mg/dL (<30 mg/dL) 03/28/17 17:35 Urine Glucose (UA) Negative mg/dL (NEGATIVE) 03/28/17 17:35 Urine Ketones Negative mg/dL (NEGATIVE) 03/28/17 17:35 Urine Blood Negative (NEGATIVE) 03/28/17 17:35 Urine Nitrate Negative (NEGATIVE) 03/28/17 17:35 Urine Bilirubin Negative (NEGATIVE) 03/28/17 17:35 Urine Urobilinogen 0.2 E.U./dL (<1 E.U./dL) 03/28/17 17:35 Ur Leukocyte Esterase Negative [place]/uL (NEGATIVE) 03/28/17 17:35 - Hospital Course Hospital Course: This is a 41 year old female with no pertinent past medical history who presented to emergency department with mid sternal chest pain since the night prior to coming in. She took motrin and tylenol with some relief. Patient was given lovenox, protonix, 1 L NS in the E.D. Patient also had ct angiograophy of the chest which was negative for aortic dissection however did show some non occlusive filling defects present and some small lung nodules. An ekg was done also which showed NSR at 76 bpm, no st changes, and no axis deviation. The patient was admitted and had a V/Q scan that was negative for pe and a extremity U/S which was negative for DVT. Cardio was consulted and cleared here from their clinical perspective. Patient was discharged and advised to follow up with PMD within on week of discharge and was given Aspirin 81 mg for 7 days. Discharge Exam - Head Exam Head Exam: ATRAUMATIC, NORMOCEPHALIC - Eye Exam Eye Exam: EOMI, Normal appearance, PERRL Pupil Exam: NORMAL ACCOMODATION, PERRL. absent: Irregular - ENT Exam ENT Exam: Mucous Membranes Moist - Respiratory Exam Respiratory Exam: Clear to PA & Lateral, NORMAL BREATHING PATTERN. absent: Accessory Muscle Use, Chest Wall Tenderness - Cardiovascular Exam Cardiovascular Exam: REGULAR RHYTHM, RRR, +S1, +S2. absent: Rubs - GI/Abdominal Exam GI & Abdominal Exam: Normal Bowel Sounds, Unremarkable - Back Exam Back exam: NORMAL INSPECTION. absent: CVA tenderness (L), CVA tenderness (R), paraspinal tenderness - Neurological Exam Neurological exam: Alert, CN II-XII Intact, Oriented x3 - Psychiatric Exam Psychiatric exam: Normal Affect, Normal Mood - Skin Skin Exam: Dry, Intact Discharge Plan - Discharge Medications Prescriptions: Aspirin [Adult Low Dose Aspirin EC] 81 mg PO DAILY #7 tablet.dr - Follow Up Plan Condition: GOOD Disposition: HOME/ ROUTINE Instructions: Chest Pain (DC), Pulmonary Embolism (DC), Regular Diet (DC), Anxiety (DC), Panic Attack (GEN) Additional Instructions: Patient should follow up with PMD within one week of discharge. Patient should follow up with a Psychiatrist to address her anxiety issues within one week of discharge. Patient should return to E.D. for any new or worsening symptoms. Referrals: Jia Rajan MD [Staff Provider] - <Erika PEREZ,Josias - Last Filed: 03/31/17 17:43> Provider - Provider Date of Admission: 03/28/17 21:29 Attending physician: Josias James MD Hospital Course - Lab Results Lab Results: Most Recent Lab Values WBC 3.9 10^3/ul (4.5-11.0) L 03/30/17 06:00 RBC 4.25 10^6/uL (3.5-6.1) 03/30/17 06:00 Hgb 12.3 g/dL (12.0-16.0) 03/30/17 06:00 Hct 37.6 % (36.0-48.0) 03/30/17 06:00 MCV 88.5 fl (80.0-105.0) 03/30/17 06:00 MCH 28.9 pg (25.0-35.0) 03/30/17 06:00 MCHC 32.7 g/dl (31.0-37.0) 03/30/17 06:00 RDW 13.5 % (11.5-14.5) 03/30/17 06:00 Plt Count 174 10^3/uL (120.0-450.0) 03/30/17 06:00 MPV 12.7 fl (7.0-11.0) H 03/30/17 06:00 Gran % 39.0 % (50.0-68.0) L 03/30/17 06:00 Lymph % (Auto) 50.4 % (22.0-35.0) H 03/30/17 06:00 [place] % (Auto) 8.0 % (1.0-6.0) H 03/30/17 06:00 Eos % (Auto) 1.8 % (1.5-5.0) 03/30/17 06:00 Baso % (Auto) 0.8 % (0.0-3.0) 03/30/17 06:00 Gran # 1.51 (1.4-6.5) 03/30/17 06:00 Lymph # 2.0 (1.2-3.4) 03/30/17 06:00 [place] # 0.3 (0.1-0.6) 03/30/17 06:00 Eos # 0.1 (0.0-0.7) 03/30/17 06:00 Baso # 0.03 K/mm3 (0.0-2.0) 03/30/17 06:00 PT 10.7 Seconds (9.9-11.8) 03/28/17 17:20 INR 0.99 (0.93-1.08) 03/28/17 17:20 APTT 28.9 Seconds (23.7-30.8) 03/28/17 17:20 D-Dimer, Quantitative 0.31 mg/L FEU (0-0.50) 03/29/17 06:04 pCO2 29 mm/Hg (35-45) L 03/29/17 07:03 pO2 92.0 mm/Hg (80-100) 03/29/17 07:03 HCO3 17.6 mmol/L (21-28) L 03/29/17 07:03 ABG pH 7.39 (7.35-7.45) 03/29/17 07:03 ABG Total CO2 18.5 mmol.L (22-28) L 03/29/17 07:03 ABG O2 Saturation 99.1 % (95-98) H 03/29/17 07:03 ABG O2 Content 12.7 ML/dl (15-23) L 03/29/17 07:03 ABG Base Excess -6.5 mmol/L (-2.0-3.0) L 03/29/17 07:03 ABG Hemoglobin 9.2 g/dL (11.7-17.4) L 03/29/17 07:03 ABG Carboxyhemoglobin 1.7 % (0.5-1.5) H 03/29/17 07:03 POC ABG HHb (Measured) 0.9 % (0-5) 03/29/17 07:03 ABG Methemoglobin 0.7 % (0.0-3.0) 03/29/17 07:03 ABG O2 Capacity 12.8 mL/dl (16-24) L 03/29/17 07:03 Hgb O2 Saturation 96.7 % (95.0-98.0) 03/29/17 07:03 FiO2 21.0 % 03/29/17 07:03 Sodium 140 mmol/L (132-148) 03/30/17 06:00 Potassium 4.1 mmol/L (3.6-5.0) 03/30/17 06:00 Chloride 103 mmol/L (98-107) 03/30/17 06:00 Carbon Dioxide 26 mmol/L (21-33) 03/30/17 06:00 Anion Gap 15 (10-20) 03/30/17 06:00 BUN 11 mg/dL (7-21) 03/30/17 06:00 Creatinine 0.8 mg/dL (0.5-1.4) 03/30/17 06:00 Est GFR ( Amer) > 60 03/30/17 06:00 Est GFR (Non-Af Amer) > 60 03/30/17 06:00 Random Glucose 91 mg/dL (70-110) 03/30/17 06:00 Calcium 9.5 mg/dL (8.4-10.5) 03/30/17 06:00 Phosphorus 4.2 mg/dL (2.5-4.5) 03/29/17 06:04 Magnesium 1.8 mg/dL (1.7-2.2) 03/29/17 06:04 Total Bilirubin 0.6 mg/dL (0.2-1.3) 03/30/17 06:00 AST 23 U/L (14-36) 03/30/17 06:00 ALT 34 U/L (7-56) 03/30/17 06:00 Alkaline Phosphatase 51 U/L (38-126) 03/30/17 06:00 Lactate Dehydrogenase 405 U/L (333-699) 03/30/17 06:00 Total Creatine Kinase 110 U/L (35-230) 03/30/17 06:00 Troponin I < 0.01 ng/mL 03/30/17 06:00 NT-Pro-B Natriuret Pep 190 pg/mL (0-450) 03/28/17 17:20 Total Protein 7.4 g/dL (5.8-8.3) 03/30/17 06:00 Albumin 4.2 g/dL (3.0-4.8) 03/30/17 06:00 Globulin 3.2 gm/dL 03/30/17 06:00 Albumin/Globulin Ratio 1.3 (1.1-1.8) 03/30/17 06:00 Lipase 30 U/L (23-300) 03/28/17 17:20 TSH 3rd Generation 1.11 mIU/mL (0.46-4.68) 03/29/17 06:04 Urine Color Yellow (YELLOW) 03/28/17 17:35 Urine Appearance Clear (CLEAR) 03/28/17 17:35 Urine pH 6.0 (4.7-8.0) 03/28/17 17:35 Ur Specific [place] 1.015 (1.005-1.035) 03/28/17 17:35 Urine Protein Negative mg/dL (<30 mg/dL) 03/28/17 17:35 Urine Glucose (UA) Negative mg/dL (NEGATIVE) 03/28/17 17:35 Urine Ketones Negative mg/dL (NEGATIVE) 03/28/17 17:35 Urine Blood Negative (NEGATIVE) 03/28/17 17:35 Urine Nitrate Negative (NEGATIVE) 03/28/17 17:35 Urine Bilirubin Negative (NEGATIVE) 03/28/17 17:35 Urine Urobilinogen 0.2 E.U./dL (<1 E.U./dL) 03/28/17 17:35 Ur Leukocyte Esterase Negative [place]/uL (NEGATIVE) 03/28/17 17:35 Attending/Attestation - Attestation I have personally seen and examined this patient.: Yes I have fully participated in the care of the patient.: Yes I have reviewed all pertinent clinical information, including history, physical exam and plan: Yes Notes (Text): 03/31/17 17:40 Patient was seen and examined with registered medical assistant. 41 year old female with no pertinent past medical history who presented to emergency department with atypical chest pain, D-dimer was normal, venous Doppler was negative for DVT.CT angio chest was not diagnostic, but V/Q scan was low probability.Patient is on room air, she is ambulatory, does not has any tachycardia or dyspnea.Patient remain stable in telemetry.Troponins were normal.She will be discharged home , will need out patient stress test , this was discussed with her in detail. Management plan was discussed in detail with patient Education was provided.
[2017-03-30 17:34] VITALS: PULSE 75
--- NOTE | 2017-03-31 01:21 | CON ---
HISTORY OF PRESENT ILLNESS: The patient is a 41-year-old female, who was admitted on the medical side for chest tightness. Psych consult was called for evaluation of possible panic attacks. The patient was seen and examined, plan incorporated. The patient reported that she never had the similar symptoms before and her chest pain was presented as pressure like. The patient said that she does not feel panicky, she does not feel anxious, but the patient reported that she stressed out about her kids who are 14 and 15-year-old. The patient denied being depressed. Denied thoughts of harming herself or others. Denies intent or plan. The patient denied using any drugs. Denied drinking alcohol. Denied smoking. The patient also does not have any previous mental health problems. PHYSICAL EXAMINATION VITAL SIGNS: Stable. Temperature 98.5, pulse is 56, blood pressure 142/80, respirations 20, and oxygen saturation 99%. MENTAL STATUS EXAMINATION: The patient is alert, pleasant, cooperative. Fair eye contact. Mood described, doing fine. Affect was reactive. Mood congruent. Thought process, coherent and goal-directed. Thought content, the patient denied visual, auditory, or tactile hallucinations. Denied paranoid ideation. The patient denied thoughts of harming herself or others. Denied intent or plan. Insight and judgement fair. Impulse is well controlled. MEDICATIONS: Reviewed. Protonix. LABORATORY DATA: Reviewed. IMPRESSION: Rule out generalized anxiety disorder. Rule out panic attack. PLAN: Continue current management. The patient does not want to be on any psychotropic medication. Moreover, the patient does not meet the criteria for that. The patient does not want to be followed up with psychiatrist. The patient was indicated in case of the worsening of the symptoms, call back. Go back to the emergency room or call 911. The patient verbalized understanding. This marketing underwriter will sign off. Should you have any questions, give me a call. Jia Rajan MD
== END 2017-03-30 18:09 | disposition home or self-care (01) ==
LOC: ED 17:03 → ERH 21:29 → 2RNO 03-29 00:11
PROVIDERS: ADMIT Internal Medicine; ATTEND Internal Medicine
DX: F41.0 Panic disorder [episodic paroxysmal anxiety] (principal); R07.9 Chest pain, unspecified
CPT/HCPCS: 36415; 71275; 74175; 78582; 80053; 81003; 82550; 82803; 83615; 83690; 83735; 83880; 84100; 84443; 84484; 85025; 85378; 85610; 85730; 93005; 93306; 93970; 96372; 96374; 99285; A9524; G0378; J1650; J7040; Q9967